=== PATIENT | male | born 1950 | race Caucasian/White ===

== ENCOUNTER 2018-07-19 08:15 | Day surgery (SDC) | payer OTHER, MEDICARE, SELFPAY ==
[2018-07-19 08:32] VITALS: BP 155/78; PULSE 75; RESP 18; TEMP 36.6; O2SAT 99; BMI 27.2
--- NOTE | 2018-07-19 08:40 | PM.HP.1 ---
History of Present Illness Date Patient Seen: 07/19/18 Time Patient Seen: 08:40 Chief complaint: colonoscopy [id number] Narrative: Patient is a gentleman whose last colonoscopy was 8 years ago. He has had polyps removed in the past. He is 3 years overdue. He has no history of blood in his stool. No family history of colon cancer though 1 sibling in his father both that polyps. Patient History Surgical History History of umbilical hernia repair (Acute ~1988) History of lumbar fusion (Resolved) Family & Social History Social History: Smoked in his teens and early 20s. Has not smoked since. Lives locally. Meds Home Medications Medication Instructions Recorded Confirmed Type allopurinol 300 mg PO QDAY #90 tab 01/25/17 07/19/18 Rx halobetasol propionate 1 olive TP SEE INSTRUCTIONS #60 gm 01/25/17 07/19/18 Rx Allergies Allergy/AdvReac Type Severity Reaction Status Date / Time Penicillins [PENICILLINS] Allergy Intermediate childhood, Verified 07/19/18 08:24 rash /hives Sulfa (Sulfonamide Allergy Intermediate hives Verified 07/19/18 08:24 Antibiotics) [SULFA (SULFONAMIDE ANTIBIOTICS)] Review of Systems Review of Systems All systems reviewed & are unremarkable except as noted in HPI and below Exam Narrative Exam Narrative: Co Operative no apparent distress. Lungs are clear to auscultation no rales or rhonchi neck is supple there are no nodes in the neck or supraclavicular areas. Trachea is midline mobile. Heart regular rate and rhythm without murmur gallop. Abdomen is protuberant soft nontender without mass. Alert and oriented x3. Assessment & Plan Plan: Assessment/Plan Narrative: Patient for screening colonoscopy. I have discussed the procedure and the rationale with the patient including risks of bleeding, perforation which would necessitate a major operation, failure to find remove all lesions and the potential to tattoo. They appeared to understand and wished to proceed.
[2018-07-19] MEDS: SODIUM CHLORIDE 0.9% 1,000 ML 200 ML IV (08:43)
--- NOTE | 2018-07-19 08:44 | P.HP_ITS ---
History of Present Illness Date Patient Seen: 07/19/18 Time Patient Seen: 08:40 Chief complaint: colonoscopy [id number] Narrative: Patient is a gentleman whose last colonoscopy was 8 years ago. He has had polyps removed in the past. He is 3 years overdue. He has no history of blood in his stool. No family history of colon cancer though 1 sibling in his father both that polyps. Patient History Surgical History History of umbilical hernia repair (Acute ~1988) History of lumbar fusion (Resolved) Family & Social History Social History: Smoked in his teens and early 20s. Has not smoked since. Lives locally. Meds Home Medications Medication Instructions Recorded Confirmed Type allopurinol 300 mg PO QDAY #90 tab 01/25/17 07/19/18 Rx halobetasol propionate 1 olive TP SEE INSTRUCTIONS #60 gm 01/25/17 07/19/18 Rx Allergies Allergy/AdvReac Type Severity Reaction Status Date / Time Penicillins [PENICILLINS] Allergy Intermediate childhood, Verified 07/19/18 08: 24 rash /hives Sulfa (Sulfonamide Allergy Intermediate hives Verified 07/19/18 08:24 Antibiotics) [SULFA (SULFONAMIDE ANTIBIOTICS)] Review of Systems Review of Systems All systems reviewed & are unremarkable except as noted in HPI and below Exam Narrative Exam Narrative: Co Operative no apparent distress. Lungs are clear to auscultation no rales or rhonchi neck is supple there are no nodes in the neck or supraclavicular areas. Trachea is midline mobile. Heart regular rate and rhythm without murmur gallop. Abdomen is protuberant soft nontender without mass. Alert and oriented x3. Assessment & Plan Plan: Assessment/Plan Narrative: Patient for screening colonoscopy. I have discussed the procedure and the rationale with the patient including risks of bleeding, perforation which would necessitate a major operation, failure to find remove all lesions and the potential to tattoo. They appeared to understand and wished to proceed.
[2018-07-19] MEDS: fentaNYL 250 MCG/5 ML INJ IV (08:57)
[2018-07-19] MEDS: MIDAZOLAM 5 MG/5 ML VIAL IV (08:58)
--- NOTE | 2018-07-19 09:28 | PM.OP.ENDO ---
Operative Date/Time/Diagnoses Date of procedure: 07/19/18 Time of procedure: 09:28 Pre-op diagnosis: Screening examination Post-op diagnosis: same (Scattered diverticulosis) Procedure & Clinicians Study performed: Colonoscopy Same procedure as scheduled: Yes Indications: Screening. Last exam 8 years ago. He is 3 years overdue because of a history of polyps. Surgeon: Yefri Proctor Procedure Notes SCOAP/Timeout: Performed Procedure in detail: The patient was placed in the left lateral decubitus position and underwent IV sedation directed by the surgeon consisting of fentanyl and Versed. Digital exam was remarkable for an enlarged firm prostate. There was no dominant mass.. The scope was inserted and advanced through the rectum into the sigmoid, descending, transverse, and ascending colon. Patient was noted to have diverticulosis scattered through the colon but there were very few in number. Pressure had to be applied in order to reach the cecum.. The cecum was reached identified by the ileocecal valve. The ileocecal valve was[not] cannulated. There was a small area of the cecum in the region of the appendix that was not well seen. The scope was gradually brought out. No Polyps were found. The scope ultimately was retroflexed in the rectum. The appearance was[remarkable for prominent veins but no large hemorrhoids]. The scope was removed and the patient tolerated the procedure well Scope withdrawal time: Almost 10 min Sedation minutes: 24 Findings: diverticulosis Recommendations: Colonscopy in 5 years (Due to a personal history of polyps) Plan for aftercare: Follow-up by letter Follow up: as needed Disposition: PACU
[2018-07-19 09:32] VITALS: BP 114/77; PULSE 58; RESP 10; TEMP 36.2; O2SAT 95
[2018-07-19 09:37] VITALS: BP 113/73; PULSE 54; RESP 15; O2SAT 97
[2018-07-19 09:41] VITALS: BP 112/72; PULSE 54; RESP 19; TEMP 36.2; O2SAT 97
[2018-07-19 09:51] VITALS: BP 101/72; PULSE 53; RESP 15; TEMP 36.2; O2SAT 96
== END 2018-07-19 10:06 | disposition home or self-care (01) ==
PROVIDERS: PCP Family Medicine; Visit Provider Specialist
PROC: 0DJD8ZZ Inspection of Lower Intestinal Tract, Via Natural or Artificial Opening Endoscopic (ICD-10-PCS; CPT 45378; principal; 2018-07-19 08:45)
DX: Z12.11 Encounter for screening for malignant neoplasm of colon (principal); K57.30 Diverticulosis of large intestine without perforation or abscess without bleeding; Z86.010 Personal history of colon polyps
CPT/HCPCS: 45378; 99152; 99153; J2250; J3010

== ENCOUNTER 2023-08-11 10:00 | Day surgery (SDC) | payer MEDICARE, SELFPAY ==
[2023-08-09 15:24] VITALS: BMI 27.7
[2023-08-11] VITALS (8 sets, daily range): BP systolic 142–166; BP diastolic 75–89; PULSE 57–77; RESP 11–18; TEMP 36.1–36.6; O2SAT 95–99; BMI 27.7
--- NOTE | 2023-08-11 10:44 | PM.PREOP ---
Pre-operative Note Interval Note History & Physical reviewed/Exam performed by Physician: Yes Changes to H&P: No
[2023-08-11] MEDS: LACTATED RINGERS 1,000 ML 100 ML IV (10:58)
--- NOTE | 2023-08-11 12:20 | SUR.OPER ---
Supine on padded OR bed, head on pillow, arms secured on padded arm boards at <90 degrees abduction, legs uncrossed, safety belt at thigh, tape over blanket over lower legs.
[2023-08-11] MEDS: BUPIVACAINE 0.25% (PF) VIAL 30 ML INJ (12:51)
[2023-08-11] MEDS: CLINDAMYCIN 600 MG/50 ML PIGGYBACK 50 MG IV (12:51)
[2023-08-11] MEDS: OXYCODONE/ACETAMINOPHEN 5/325 TABLET 1 TAB PO (13:37)
--- NOTE | 2023-08-11 13:37 | PM.OP.1 ---
Operative Date/Time/Diagnoses Date of procedure: 08/11/23 Time of procedure: 13:37 Pre-op diagnosis: Umbilical hernia Post-op diagnosis: same Procedure & Clinicians Procedure: Open umbilical hernia repair Same procedure as scheduled: Yes Indications: 73-year-old man with a symptomatic reducible umbilical hernia here for elective repair Surgeon: Andreas Mcbride Click Yes if Unassisted: Yes Anesthesia Type: General Operative Notes Findings: 3 cm fascial defect containing omentum Specimen(s): none sent Estimated Blood Loss (mL): 10 Procedure in detail: Patient was brought to the operating room placed supine on the table. Bilateral lower extremity compression devices were applied. General anesthesia was induced and they were intubated with an LMA. They received clindamycin prior to skin incision. They were prepped and draped in sterile fashion. A time-out was performed. A curvilinear incision was made inferior to the umbilicus. The subcutaneous tissues were divided. The umbilical hernia was identified and the hernia sac was dissected off the umbilical skin and circumferentially off of the fascia defect. The hernia sac was sharply opened and contained viable omentum. The omentum was reduced back into the abdomen. Using blunt dissection I carefully carefully freed the hernia sac from beneath the fascia defect in order to accomodate the mesh. The fascia defect was 3 cm in maximal diameter. A Bard Ventralex ST hernia patch 6 cm was inserted beneath the fascia defect and above the peritoneum in a sublay position. The mesh was anchored in multiple locations using Ethibond suture to the fascia and the fascial defect was closed over the mesh. The umbilical skin was tacked to the subcutaneous tissues and then the remainder of the subcutaneous tissues were reapproximated using 3 0 Vicry,l skin closed with 4 0 Monocryl followed by the application of Dermabond and Steri-Strips. Sponge and instrument count at the end of the operation was correct. Patient tolerated procedure well was extubated and transferred to postoperative care unit in stable condition. Complications: none Post-operative Condition: stable Disposition: same day surgery
== END 2023-08-11 14:16 | disposition home or self-care (01) ==
PROVIDERS: PCP Family Medicine; Referring Provider Surgery; Visit Provider Surgery
PROC: (CPT 49593; principal; 2023-08-11 11:15)
DX: K42.9 Umbilical hernia without obstruction or gangrene (principal)
CPT/HCPCS: 49593; J1100; J2250; J2405; J2704; J3010